=== PATIENT | male | born 1995 | race Caucasian/White ===

== ENCOUNTER 2018-08-25 22:00 | Emergency (ER) | payer OTHER ==
[~2018-08-25] VITALS: Ht 190.5 cm; Wt 59.0 kg
[2018-09-18] MEDS ORDERED: AUGMENTIN 875-875 MG PO (21:04)
== END 2018-08-26 00:34 | disposition left against medical advice (07) ==
LOC: ED 22:00
DX: Z00.8 Encounter for other general examination (principal); Z53.21 Procedure and treatment not carried out due to patient leaving prior to being seen by health care provider

== ENCOUNTER 2018-09-17 16:16 | Emergency (ER) | payer OTHER ==
[~2018-09-17] VITALS: Ht 190.5 cm; Wt 72.6 kg
[2018-09-17] MEDS ORDERED: ANTIBIOTIC28.4 GM T (19:34)
[2018-09-17] MEDS ORDERED: AUGMENTIN 875-875 MG PO (19:34)
[2018-09-18] MEDS ORDERED: AUGMENTIN 875-875 MG PO (21:04)
== END 2018-09-17 19:41 | disposition home or self-care (01) ==
LOC: ED 16:16
DX: S61.217A Laceration without foreign body of left little finger without damage to nail, initial encounter (principal); F17.200 Nicotine dependence, unspecified, uncomplicated; Z23 Encounter for immunization; W45.8XXA Other foreign body or object entering through skin, initial encounter; Y93.89 Activity, other specified; Y92.89 Other specified places as the place of occurrence of the external cause; Y99.0 Civilian activity done for income or pay

== ENCOUNTER 2018-10-05 14:06 | Emergency (ER) | payer OTHER ==
[~2018-10-05] VITALS: Ht 190.5 cm; Wt 68.0 kg
[~2018-10-05 14:06] MED LIST: ANTIBIOTIC28.4 GM T; AUGMENTIN 875-875 MG PO
[2018-10-05] MEDS ORDERED: ANTIBIOTIC28.4 GM T (14:30)
[2018-10-05] MEDS ORDERED: SEPTDS PO (14:30)
== END 2018-10-05 16:02 | disposition home or self-care (01) ==
LOC: ED 14:06
DX: S61.217D Laceration without foreign body of left little finger without damage to nail, subsequent encounter (principal); R23.4 Changes in skin texture; W45.8XXD Other foreign body or object entering through skin, subsequent encounter

== ENCOUNTER 2019-07-12 23:19 | Emergency (ER) | payer OTHER ==
[~2019-07-12 23:19] MED LIST changes: +SEPTDS PO
[2019-07-12 23:54] LABS: BASO # 0.2 10*3/uL (0.0-0.1); BASO % 1.4 % (0.0-1.0); EOS # 0.2 10*3/uL (0.0-0.4); EOS % 1.9 % (1.0-4.0); HEMATOCRIT 47.5 % (42.0-52.0); LYMPH # 3.3 10*3/uL (1.3-4.4); LYMPH % 29.9 % (27.0-41.0); MEAN CELL VOLUME 89.3 fl (80.0-94.0); MEAN CORPUSCULAR HGB CONC 34.7 g/dl (33.0-37.0); MEAN PLATELET VOLUME 9.3 fl (9.6-12.3); MONO # 0.7 10*3/uL (0.1-1.0); MONO % 6.2 % (3.0-9.0); NEUT # 6.6 10*3/uL (2.3-7.9); NEUT % 60.2 % (47.0-73.0); PLATELET COUNT AUTOMATED 376 10*3/uL (130-400); RED BLOOD COUNT 5.32 10*6/uL (4.50-5.90); RED CELL DISTRI WIDTH 12.2 % (0-14.5)
[2019-07-13 00:08] LABS: ALBUMIN 4.3 gm/dl (3.1-4.5); ALKALINE PHOSPHATASE 76 U/L (45-117); BUN 10 mg/dl (7-24); CHLORIDE 110 mmol/L (98-107); CREATININE 0.94 mg/dL (0.70-1.30); POTASSIUM 4.1 mmol/L (3.5-5.1); SGOT/AST 39 IU/L (3-35); SGPT/ALT 42 U/L (12-78); SODIUM 143 mmol/L (136-145); TOTAL PROTEIN 7.8 gm/dL (6.4-8.2)
[2019-07-13 00:10] LABS: ACETAMINOPHEN (TYLENOL) < 5.0 ug/ml (10-30)
[2019-07-13 00:49] LABS: BILIRUBIN NEGATIVE (NEGATIVE); BLOOD NEGATIVE (NEGATIVE); CLARITY CLEAR (CLEAR); COLOR STRAW (YELLOW); GLUCOSE NEGATIVE (NEGATIVE); KETONE NEGATIVE (NEGATIVE); LEUKO ESTERASE NEGATIVE (NEGATIVE); NITRITE NEGATIVE (NEGATIVE); PH 6.5 (5.0-9.0); SPECIFIC GRAVITY 1.005 (1.005-1.030); UROBILINOGEN 0.2 E.U./dl (0.2-1.0)
[2019-07-13 00:54] LABS: BACTERIA TRACE; EPITHELIAL CELLS 0-2; WBC 0-2 wbc/hpf (0-5)
[2019-07-13 01:01] LABS: URINE BARBITURATES > 200 (200ng/ml); URINE BENZODIAZEPINES < 200 (200ng/ml); URINE CANNABINOIDS (THC) < 50 (50ng/ml); URINE COCAINE > 300 (300ng/ml); URINE METHADONE < 300 (300ng/ml); URINE OPIATES < 300 (300ng/ml)
[2019-07-13 01:03] LABS: URINE PHENCYCLIDINE < 25 (25ng/ml)
[2019-07-13 01:06] LABS: URINE AMPHETAMINES < 1000 (1000ng/ml)
== END 2019-07-13 09:45 ==
LOC: ED 23:19
PROVIDERS: Emergency Medicine Emergency Medical Services
DX: S09.90XA Unspecified injury of head, initial encounter (principal); F10.129 Alcohol abuse with intoxication, unspecified; Z79.899 Other long term (current) drug therapy; Y08.89XA Assault by other specified means, initial encounter; Y93.89 Activity, other specified; Y92.89 Other specified places as the place of occurrence of the external cause; Y99.8 Other external cause status